=== PATIENT | female | born 1975 | race Caucasian/White ===

== ENCOUNTER → 2016-06-30 | Day surgery (SDC) | payer BC ==
[~2016-06-30] MED LIST: ALL DAY ALLERGY10 M3 PO; ASPIRIN EC81 MG PO; AZELASTINE137 MCG/0.; BRILINTA 90 MG90 MG PO; BUSPAR 5MG TABLE5 MG PO; CALTRATE 600 +1 EACH PO; CARAFATE 1 GM TA1 GM PO; DYAZIDE 37.5-21 EACH PO; HYDROCHLOROTHIA25 MG PO; LIPITOR TAB 2020 MG PO; LOPRESSOR 50 MG50 MG PO; NITROSTAT 0.40.4 MG SL; NORCO 5-325 TA1 EACH PO; PROTONIX40 MG PO; SYMBICORT 16010.2 GM INH; VALIUM 5 MG TAB5 MG PO; VENTOLIN/PROVE0.5 ML INH; ZESTRIL5 MG PO; ZYRTEC10 MG PO
[2016-06-30 07:55] LABS: HEMOGLOBIN 12.6 gm/dl (12.3-15.3); RED BLOOD COUNT 4.55 M/UL (4.00-5.10); WHITE BLOOD COUNT 6.5 K/UL (4.5-11.0)
[2016-06-30 08:13] LABS: BUN/CREATININE RATIO 19 (0-10)
== END | disposition home or self-care (01) ==
LOC: OR 07:08
PROVIDERS: Obstetrics & Gynecology
PROC: 0UDB7ZX Extraction of Endometrium, Via Natural or Artificial Opening, Diagnostic (ICD-10-PCS; principal; 2016-06-30 10:30)
DX: N92.0 Excessive and frequent menstruation with regular cycle (principal); I10 Essential (primary) hypertension; J44.9 Chronic obstructive pulmonary disease, unspecified; K21.9 Gastro-esophageal reflux disease without esophagitis; E66.9 Obesity, unspecified; M19.90 Unspecified osteoarthritis, unspecified site; F41.9 Anxiety disorder, unspecified; F17.210 Nicotine dependence, cigarettes, uncomplicated; Z68.30 Body mass index [BMI] 30.0-30.9, adult; Z88.1 Allergy status to other antibiotic agents; Z79.899 Other long term (current) drug therapy; Z98.51 Tubal ligation status; Z98.890 Other specified postprocedural states
CPT/HCPCS: 36415; 80048; 81001; 85025; J2795; J7120

== ENCOUNTER 2016-07-31 10:01 | Observation (INO) | payer BC ==
[~2016-07-31] VITALS: Ht 170.2 cm; Wt 95.9 kg
[~2016-07-31 10:01] MED LIST changes: -ALL DAY ALLERGY10 M3 PO; -ASPIRIN EC81 MG PO; -BRILINTA 90 MG90 MG PO; -CARAFATE 1 GM TA1 GM PO; -HYDROCHLOROTHIA25 MG PO; -LIPITOR TAB 2020 MG PO; -LOPRESSOR 50 MG50 MG PO; -NITROSTAT 0.40.4 MG SL; -ZESTRIL5 MG PO
[2016-07-31 10:47] LABS: HEMOGLOBIN 12.6 gm/dl (12.3-15.3); RED BLOOD COUNT 4.68 M/UL (4.00-5.10); WHITE BLOOD COUNT 7.3 K/UL (4.5-11.0)
[2016-07-31 11:08] LABS: BUN/CREATININE RATIO 16 (0-10)
[2016-07-31] MEDS ORDERED: CARAFATE 1 GM TA1 GM PO (14:55)
[2016-07-31] MEDS ORDERED: ALL DAY ALLERGY10 M3 PO (19:52)
== END 2016-07-31 21:30 | disposition home or self-care (01) ==
LOC: ER1 10:01 → PROG CARE 12:20
PROVIDERS: Emergency Medicine; ADMIT Hospitalist
DX: R07.9 Chest pain, unspecified (principal); I10 Essential (primary) hypertension; J44.9 Chronic obstructive pulmonary disease, unspecified; F41.9 Anxiety disorder, unspecified; K21.9 Gastro-esophageal reflux disease without esophagitis; E66.9 Obesity, unspecified; F17.210 Nicotine dependence, cigarettes, uncomplicated; Z68.33 Body mass index [BMI] 33.0-33.9, adult; Z88.1 Allergy status to other antibiotic agents; Z79.891 Long term (current) use of opiate analgesic; Z79.899 Other long term (current) drug therapy; Z98.51 Tubal ligation status; Z98.890 Other specified postprocedural states
CPT/HCPCS: ECHO; 36415; 71010; 78452; 80053; 82550; 82553; 83874; 84484; 85025; 85610; 85730; 93005; 93017; 93306; 99285; A9502; G0378; J2785

== ENCOUNTER 2016-08-03 05:26 | Inpatient (IN) | payer BC ==
[~2016-08-03] VITALS: Ht 170.2 cm; Wt 98.4 kg
[~2016-08-03 05:26] MED LIST changes: +ALL DAY ALLERGY10 M3 PO; +CARAFATE 1 GM TA1 GM PO
[2016-08-03 07:10] LABS: HEMOGLOBIN 12.3 gm/dl (12.3-15.3); RED BLOOD COUNT 4.51 M/UL (4.00-5.10); WHITE BLOOD COUNT 7.1 K/UL (4.5-11.0)
[2016-08-03 07:42] LABS: BUN/CREATININE RATIO 22 (0-10)
[2016-08-04 04:09] LABS: HEMOGLOBIN 11.2 gm/dl (12.3-15.3); RED BLOOD COUNT 4.18 M/UL (4.00-5.10); WHITE BLOOD COUNT 8.2 K/UL (4.5-11.0)
[2016-08-04 05:08] LABS: BUN/CREATININE RATIO 15 (0-10)
[2016-08-04] MEDS ORDERED: ASPIRIN EC81 MG PO (11:27)
[2016-08-04] MEDS ORDERED: LIPITOR TAB 2020 MG PO (11:28)
[2016-08-04] MEDS ORDERED: ZESTRIL5 MG PO (11:30)
[2016-08-04] MEDS ORDERED: LOPRESSOR 50 MG50 MG PO (11:31)
[2016-08-04] MEDS ORDERED: BRILINTA 90 MG90 MG PO (11:33)
[2016-08-04] MEDS ORDERED: NITROSTAT 0.40.4 MG SL (11:36)
[2016-08-04] MEDS ORDERED: HYDROCHLOROTHIA25 MG PO (11:46)
== END 2016-08-04 11:03 | disposition home or self-care (01) | DRG 247 ==
LOC: ER1 05:26 → ZEROF 09:50 → PROG CARE 16:41
PROVIDERS: Physician Assistant; Physician Assistant Medical; ADMIT Family Medicine
PROC: 027035Z Dilation of Coronary Artery, One Artery with Two Drug-eluting Intraluminal Devices, Percutaneous Approach (ICD-10-PCS; principal; 2016-08-03)
PROC: 4A023N7 Measurement of Cardiac Sampling and Pressure, Left Heart, Percutaneous Approach (ICD-10-PCS; 2016-08-03)
PROC: 4A033BC Measurement of Arterial Pressure, Coronary, Percutaneous Approach (ICD-10-PCS; 2016-08-03)
PROC: 3E03317 Introduction of Other Thrombolytic into Peripheral Vein, Percutaneous Approach (ICD-10-PCS; 2016-08-03)
PROC: B2111ZZ Fluoroscopy of Multiple Coronary Arteries using Low Osmolar Contrast (ICD-10-PCS; 2016-08-03)
DX: I21.4 Non-ST elevation (NSTEMI) myocardial infarction (principal); I10 Essential (primary) hypertension; F17.210 Nicotine dependence, cigarettes, uncomplicated; E66.9 Obesity, unspecified; J44.9 Chronic obstructive pulmonary disease, unspecified; F41.9 Anxiety disorder, unspecified; K21.9 Gastro-esophageal reflux disease without esophagitis; R07.9 Chest pain, unspecified; J30.2 Other seasonal allergic rhinitis; Z98.51 Tubal ligation status; I20.0 Unstable angina; Z88.1 Allergy status to other antibiotic agents; Z79.899 Other long term (current) drug therapy; Z82.49 Family history of ischemic heart disease and other diseases of the circulatory system; Z68.32 Body mass index [BMI] 32.0-32.9, adult; S60.212A Contusion of left wrist, initial encounter
CPT/HCPCS: 36415; 71010; 80048; 80053; 82550; 82553; 83735; 83874; 84484; 85025; 85347; 85379; 93005; 93571; 96365; 99285; C1725; C1769; C1874; C1887; C1894; C9600; J0153; J1644; J2250; J3010; J7030; J7040; Q9963